=== PATIENT | male | born 2000 | race Two or more races ===

== ENCOUNTER 2023-03-17 12:52 | Emergency (ER) | payer MEDICAID ==
[~2023-03-17] VITALS: Ht 167.6 cm; Wt 63.6 kg
[2023-03-17 13:11] LABS: COVID AG,FIA SOURCE NASAL SWAB
[2023-03-17 13:12] VITALS: BP 138/78; PULSE 72; RESP 16; TEMP 98.1
[2023-03-17 13:41] LABS: SARS-COV2 (COVID) ANTIGEN,FIA Negative (Negative)
[2023-03-17 13:43] LABS: INFLUENZA TYPE A NEGATIVE FOR TYPE A (NEGATIVE); INFLUENZA TYPE B NEGATIVE FOR TYPE B (NEGATIVE)
[2023-03-17] MEDS ORDERED: IBUP-1554 PO (14:32)
[2023-03-17] MEDS ORDERED: ACET-66 PO (14:32)
[2023-03-17] MEDS ORDERED: GUAIFDM PO (14:32)
== END 2023-03-17 14:50 | disposition home or self-care (01) ==
LOC: EMS 12:52
DX: J06.9 Acute upper respiratory infection, unspecified (principal); Z86.11 Personal history of tuberculosis; Z20.822 Contact with and (suspected) exposure to COVID-19
CPT/HCPCS: 71045; 87804; 99284